=== PATIENT | male | born 1995 | race Hispanic/Latino ===

== ENCOUNTER 2018-03-24 06:42 | Emergency (ER) | payer SELFPAY ==
[2018-03-24 06:43] VITALS: BP 132/73; PULSE 89; RESP 18; TEMP 36.8; O2SAT 98; BMI 30.4
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
[2018-03-24 11:01] VITALS: BP 122/76; PULSE 59; RESP 16; O2SAT 99
== END 2018-03-24 11:07 | disposition home or self-care (01) ==
PROVIDERS: Emergency Provider Emergency Medicine
DX: S30.1XXA Contusion of abdominal wall, initial encounter (principal); V59.50XA Passenger in pick-up truck or van injured in collision with unspecified motor vehicles in traffic accident, initial encounter; Y93.9 Activity, unspecified; Y92.410 Unspecified street and highway as the place of occurrence of the external cause; Y99.9 Unspecified external cause status; S41.112A Laceration without foreign body of left upper arm, initial encounter
CPT/HCPCS: 12002; 74177; 99284; Q9967